=== PATIENT | male | born 1955 | race Caucasian/White ===

== ENCOUNTER 2018-07-14 07:39 | Day surgery (SDC) | payer MEDICARE, OTHER ==
[~2018-07-14] VITALS: Ht 190.5 cm; Wt 99.8 kg
[~2018-07-14 07:39] MED LIST: ASPI81EC; ATOR20 PO; ATOR80 PO; CELE200 PO; CLOP75 PO; Carisoprodol350 MG PO; ELIQUIS5 MG PO; EZET10 PO; EZET10-20; FISH1000 PO; HYDR1TAB94 PO; MAGOXI400 PO; METAMUCIL660 GM PO; METCAR750 PO; METO25ER PO; METO50 PO; METPRE4DP PO; MSM Glucosamin1 EACH PO; MULVITMIND PO; Percocet 5-3251 EACH PO; ROSU5 PO; SOMA350 MG PO; TELM40 PO; TICA90TA PO; [UNRECOGNIZED DRUG - CODE] PO
== END 2018-07-14 09:33 | disposition home or self-care (01) ==
LOC: ORSCSDS 07:39
PROVIDERS: Internal Medicine Gastroenterology
PROC: 0DBH8ZX Excision of Cecum, Via Natural or Artificial Opening Endoscopic, Diagnostic (ICD-10-PCS; principal; 2018-07-14 09:00)
PROC: 0DBM8ZX Excision of Descending Colon, Via Natural or Artificial Opening Endoscopic, Diagnostic (ICD-10-PCS; principal; 2018-07-14 09:00)
DX: Z12.11 Encounter for screening for malignant neoplasm of colon (principal); D12.0 Benign neoplasm of cecum; D12.4 Benign neoplasm of descending colon; N40.2 Nodular prostate without lower urinary tract symptoms; Z86.010 Personal history of colon polyps; I25.2 Old myocardial infarction; I25.10 Atherosclerotic heart disease of native coronary artery without angina pectoris; Z95.1 Presence of aortocoronary bypass graft; Z87.891 Personal history of nicotine dependence; Z79.82 Long term (current) use of aspirin; Z79.899 Other long term (current) drug therapy
CPT/HCPCS: 88305; J0330; J0461; J1980; J2405; J2704; J7120

== ENCOUNTER 2018-09-08 05:59 | Day surgery (SDC) | payer MEDICARE, OTHER ==
[~2018-09-08] VITALS: Ht 190.5 cm; Wt 102.0 kg
[~2018-09-08 05:59] MED LIST changes: +ASPI325 PO; +Advil200 M1 PO
[2018-09-08] MEDS ORDERED: ASPI81CH PO (06:27)
--- NOTE | 2018-09-08 09:29 | NUR ---
PT VERBALIZES UNDERSTANDING WRITTEN AND VERBAL ORDERS. PT DENIES QUESTIONS. PT IV DC'D. CATH INTACT. PRESSURE DSG IN PLACE. PT DC TO HOME VIA S/O BY [facility]ILLER.
== END 2018-09-08 09:35 | disposition home or self-care (01) ==
LOC: MHTC 05:59
DX: Z45.010 Encounter for checking and testing of cardiac pacemaker pulse generator [battery] (principal); I49.5 Sick sinus syndrome; I25.10 Atherosclerotic heart disease of native coronary artery without angina pectoris; I25.2 Old myocardial infarction; Z95.5 Presence of coronary angioplasty implant and graft; Z79.82 Long term (current) use of aspirin; Z79.899 Other long term (current) drug therapy; Z87.891 Personal history of nicotine dependence
CPT/HCPCS: 33228; 99152; 99153; C1785; J0690; J1644; J2250; J3010; J7030; J7040

== ENCOUNTER 2018-11-24 09:33 | Day surgery (SDC) | payer MEDICARE, OTHER ==
[~2018-11-24 09:33] MED LIST changes: +ASPI81CH PO
--- NOTE | 2018-11-24 11:27 | NUR ---
"DAY SURGERY RN | REPORT FROM TANIKA PFEIFFER."
--- NOTE | 2018-11-24 12:09 | NUR ---
"Day surgery RN | report and handoff to [place] PFEIFFER."
--- NOTE | 2018-11-24 12:55 | NUR ---
1150- Discharge instructions reviewed with patient. Patient verbalizes understanding. Copy given to patient to take home. JORGE A C/D/I. PT HAS HAD NO C/O THROUGHOUT STAY. Discharged via wheelchair to private car for ride home.
== END 2018-11-24 22:43 | disposition home or self-care (01) ==
LOC: RAD 09:33 → CT 11:00 → RAD 22:43
DX: M51.36 Other intervertebral disc degeneration, lumbar region (principal); M51.37 Other intervertebral disc degeneration, lumbosacral region; M48.061 Spinal stenosis, lumbar region without neurogenic claudication; I72.3 Aneurysm of iliac artery; K57.30 Diverticulosis of large intestine without perforation or abscess without bleeding
CPT/HCPCS: 62304; 72132; Q9966

== ENCOUNTER 2019-10-01 06:09 | Emergency (ER) | payer MEDICARE, OTHER ==
[~2019-10-01] VITALS: Ht 182.9 cm; Wt 86.2 kg
[2019-10-01 07:04] LABS: BASOPHILS ABSOLUTE AUTO 0.04 K/mm3 (0.00-0.23); BASOPHILS PERCENT AUTO 0 % (0-2); EOSINOPHILS ABSOLUTE AUTO 0.06 K/mm3 (0.00-0.68); EOSINOPHILS PERCENT AUTO 1 % (0-6); Hematocrit 46.9 % (37.0-53.0); Hemoglobin 15.4 g/dL (13.5-17.5); IMMATURE GRAN ABSOLUTE AUTO 0.04 K/mm3 (0.00-0.10); IMMATURE GRAN PERCENT AUTO 0 % (0-1); LYMPHOCYTES ABSOLUTE AUTO 1.79 K/mm3 (0.84-5.20); LYMPHOCYTES PERCENT AUTO 15 % (21-46); MONOCYTES ABSOLUTE AUTO 0.86 K/mm3 (0.16-1.47); MONOCYTES PERCENT AUTO 7 % (4-13); Mean Corpuscular HGB 30.9 pg (26.0-34.0); Mean Corpuscular HGB Conc 32.8 g/dL (31.5-36.5); Mean Corpuscular Volume 94 fL (80-100); Mean Platelet Volume 9.5 fL (9.1-12.4); NEUTROPHILS ABSOLUTE AUTO 8.96 K/mm3 (1.96-9.15); NEUTROPHILS PERCENT AUTO 76 % (41-73); Platelet Count 226 K/mm3 (150-400); RDW Coefficient Variation 12.4 % (11.7-14.2); RDW Standard Deviation 42.6 fL (35.1-46.3); Red Blood Cell Count 4.98 M/mm3 (4.30-5.90); White Blood Cell Count 11.75 K/mm3 (4.00-11.30)
[2019-10-01 07:16] LABS: Alanine Aminotransfer (ALT/SGP 28 U/L (12-78); Albumin, Blood 4.3 g/dL (3.4-5.0); Albumin/Globulin Ratio 1.1 (0.8-1.8); Alk Phos 87 U/L (50-136); Anion Gap 9 mmol/L (6-16); Aspartate Aminotrans (AST/SGOT 20 U/L (12-37); Bilirubin, Total 0.5 mg/dL (0.1-1.0); Blood Urea Nitrogen 18 mg/dL (8-24); Bun/Creatinine Ratio 16.1 (12.0-20.0); CO2, Blood 25 mmol/L (21-32); Calcium, Blood 9.2 mg/dL (8.5-10.1); Chloride, Blood 108 mmol/L (98-108); Creatinine, Blood 1.12 mg/dL (0.60-1.20); Glomerular Filtration Rate >60 (60-); Glucose, Blood 151 mg/dL (70-99); Potassium, Blood 3.7 mmol/L (3.5-5.5); Sodium, Blood 142 mmol/L (136-145); Total Protein, Blood 8.3 g/dL (6.4-8.2)
[2019-10-01 07:54] LABS: Source, Urine Clean Catch
[2019-10-01 07:58] LABS: Bilirubin, Urine Neg (Neg); Blood, Urine Neg (Neg); Glucose Qualitative, Urine Neg (Neg); Ketones, Urine 3+ (Neg); Leukocyte Esterase, Urine 1+ (Neg); Nitrite, Urine Neg (Neg); Protein, Urine Neg (Neg); Urobilinogen, Urine NORM (Normal)
[2019-10-01 08:08] LABS: Appearance, Urine Clear (Clear); Color, Urine Yellow (P-Yellow)
[2019-10-01 08:09] LABS: Bacteria Rare /hpf; Red Blood Cells, Urine 0-2 /hpf (0-2); Squamous Epithelial Cells Not Seen /hpf (Few)
[2019-10-01] MEDS ORDERED: CEPH500 PO (10:23)
[2019-10-01] MEDS ORDERED: Percocet 5-3251 EACH PO (10:23)
[2019-10-01] MEDS ORDERED: ONDA4 PO (10:29)
== END 2019-10-01 10:27 | disposition home or self-care (01) ==
LOC: ER 06:09
PROVIDERS: Emergency Medicine
DX: N13.2 Hydronephrosis with renal and ureteral calculous obstruction (principal); I25.2 Old myocardial infarction; Z87.891 Personal history of nicotine dependence; Z88.8 Allergy status to other drugs, medicaments and biological substances; Z79.82 Long term (current) use of aspirin; Z79.899 Other long term (current) drug therapy; Z85.46 Personal history of malignant neoplasm of prostate
CPT/HCPCS: 36415; 74176; 80053; 81001; 83690; 85025; 87086; 96361; 96365; 96375; 96376; 99284-25; J0696; J1170; J1885; J2405; J7030

== ENCOUNTER → 2019-10-19 | Outpatient (CLI) | payer MEDICARE, OTHER ==
[~2019-10-19] MED LIST changes: +CEPH500 PO; +ONDA4 PO
[2019-10-19 15:19] LABS: Source, Urine Clean Catch
[2019-10-19 15:41] LABS: Bilirubin, Urine Neg (Neg); Blood, Urine Neg (Neg); Glucose Qualitative, Urine Neg (Neg); Ketones, Urine Neg (Neg); Leukocyte Esterase, Urine Neg (Neg); Nitrite, Urine Neg (Neg); Protein, Urine Neg (Neg); Urobilinogen, Urine NORM (Normal)
[2019-10-19 16:08] LABS: Appearance, Urine Clear (Clear); Color, Urine Yellow (P-Yellow)
== END | disposition home or self-care (01) ==
LOC: LAB SHORT 15:17 → LAB 15:17
PROVIDERS: Radiology Radiation Oncology
DX: C61 Malignant neoplasm of prostate (principal); R30.0 Dysuria
CPT/HCPCS: 81003

== ENCOUNTER 2020-06-21 10:34 | Day surgery (SDC) | payer MEDICARE, OTHER ==
[~2020-06-21] VITALS: Ht 190.5 cm; Wt 100.0 kg
--- NOTE | 2020-06-21 13:09 | NUR ---
PT ARRIVED BACK TO RECOVERY ROOM IN BED. LEFT FEMORAL GROIN SITE SOFT NON-TENDER WITH NO HEMATOMA, NO BLEEDING AND INTACT DRESSING. PT DENIES CP. PT'S IN ROOM. CALL LIGHT IN REACH.
--- NOTE | 2020-06-21 14:11 | NUR ---
DISCHARGE INSTRUCTIONS REVIEWED ALL QUESTIONS ANSWERED.
--- NOTE | 2020-06-21 14:52 | NUR ---
PT AMBULATED TO TO VOID. LEFT GROIN SITE STILL SOFT NON-TENDER WTIH NO HEMATOMA, NO PULSATILE BLEEDING AND INTACT DRESSING.
--- NOTE | 2020-06-21 15:35 | NUR ---
PT DRESSES SELF WITH MINIMAL ASSISTANCE. IV DC'D. CATH INTACT. PRESSURE DSG IN PLACE. PT L FEM SITE REMAINS CLEAR. PT DC TO HOME VIA S/O BY [facility].
== END 2020-06-21 15:42 | disposition home or self-care (01) ==
LOC: MHTC 10:34
DX: I70.213 Atherosclerosis of native arteries of extremities with intermittent claudication, bilateral legs (principal); I72.3 Aneurysm of iliac artery; I10 Essential (primary) hypertension; E78.5 Hyperlipidemia, unspecified; I25.10 Atherosclerotic heart disease of native coronary artery without angina pectoris; I27.20 Pulmonary hypertension, unspecified; I25.2 Old myocardial infarction; Z86.718 Personal history of other venous thrombosis and embolism; Z88.8 Allergy status to other drugs, medicaments and biological substances; Z87.891 Personal history of nicotine dependence
CPT/HCPCS: 37252; 75625; 75716; 75774; 85347; 99152; 99153; C1757; C1760; C1769; C1887; C1894; C2623; C9764; J1644; J2250; J3010; J7030; J7040; J7050; Q9967

== ENCOUNTER 2023-07-27 11:22 | Day surgery (SDC) | payer MEDICARE, OTHER ==
[~2023-07-27] VITALS: Ht 190.5 cm; Wt 93.6 kg
[~2023-07-27 11:22] MED LIST changes: +BENADRYL25 MG; +Cyclobenzaprine5 MG; +JARDIANCE10 MG PO; +LOSA25 PO; +NEXLETOL180 MG PO; +XARELTO20 MG PO
[2023-07-27] MEDS ORDERED: propofoL 50 ML IV ONE (11:50)
[2023-07-27] MEDS ORDERED: Lactated Ringer's 1,000 ML IV ONE (12:00)
--- NOTE | 2023-07-27 12:14 | NUR ---
07/27/23 1214 Leti Caceres CASE PROCEDED WITHOUT ANESTHESIA PER DR JOHNSON AND DR HOOVER.
[2023-07-27 13:14] VITALS: BP 116/71
== END 2023-07-27 13:13 | disposition home or self-care (01) ==
LOC: ORSCSDS 11:22
PROVIDERS: Internal Medicine Gastroenterology
PROC: 0DBM8ZX Excision of Descending Colon, Via Natural or Artificial Opening Endoscopic, Diagnostic (ICD-10-PCS; principal; 2023-07-27 12:30)
PROC: 0DBH8ZX Excision of Cecum, Via Natural or Artificial Opening Endoscopic, Diagnostic (ICD-10-PCS; principal; 2023-07-27 12:30)
DX: Z12.11 Encounter for screening for malignant neoplasm of colon (principal); Z86.010 Personal history of colon polyps; D12.0 Benign neoplasm of cecum; D12.4 Benign neoplasm of descending colon; K57.30 Diverticulosis of large intestine without perforation or abscess without bleeding; Z85.46 Personal history of malignant neoplasm of prostate; I25.10 Atherosclerotic heart disease of native coronary artery without angina pectoris; Z95.1 Presence of aortocoronary bypass graft; Z86.718 Personal history of other venous thrombosis and embolism; Z95.0 Presence of cardiac pacemaker; Z87.891 Personal history of nicotine dependence; Z79.899 Other long term (current) drug therapy
CPT/HCPCS: 82947; 88305; J2704; J7120